=== PATIENT | male | born 1950 | race Caucasian/White ===

== ENCOUNTER 2023-02-01 10:21 | Emergency (ER) | payer MEDICARE, OTHER ==
[~2023-02-01] VITALS: Ht 172.7 cm; Wt 69.0 kg
[~2023-02-01 10:21] MED LIST: HYDR-3454 PO; SERT100T8 PO
[2023-02-01] MEDS ORDERED: NS IV 1000 ML 1,000 ML IV STA (10:34)
[2023-02-01 10:37] LABS: BASOPHILS % (AUTO) 1 % (0-10); EOSINOPHILS # (AUTO) 0.1 10^3/uL (0.0-0.3); EOSINOPHILS % (AUTO) 2 % (0-10); HEMATOCRIT 44 % (40-54); HEMOGLOBIN 15.1 g/dL (13.3-17.7); LYMPHOCYTES # (AUTO) 1.2 10^3/uL (1.0-4.0); LYMPHOCYTES % (AUTO) 29 % (12-44); MEAN CORPUSCULAR HEMOGLOBIN 33 pg (25-34); MEAN CORPUSCULAR HGB CONC 34 g/dL (32-36); MEAN CORPUSCULAR VOLUME 96 fL (80-99); MEAN PLATELET VOLUME 10.6 fL (9.0-12.2); MONOCYTES # (AUTO) 0.3 10^3/uL (0.0-1.0); MONOCYTES % (AUTO) 8 % (0-12); NEUTROPHILS # (AUTO) 2.4 10^3/uL (1.8-7.8); NEUTROPHILS % (AUTO) 60 % (42-75); PLATELET COUNT 156 10^3/uL (130-400); WHITE BLOOD COUNT 3.9 10^3/uL (4.3-11.0)
--- NOTE | 2023-02-01 10:40 | ED Cardiac General ---
History of Present Illness General Chief Complaint: Cardiac/General Problems Stated Complaint: LOW HR; DIZZINESS Source: patient History of Present Illness Date Seen by Provider: Feb 01, 2023 Time Seen by Provider: 10:23 Initial Comments 72-year-old male presenting with complaints of feeling dizzy since Friday. He states that he got overheated working in his garage on Friday and started having dizziness then. He had also gotten dehydrated the week before. He has not really increased his fluid intake. He noticed that his urine has been darker than normal. Today he had gone to the walk-in care [facility] and they told him that his blood pressure was high and his heart rate was in the 40s. He denies having a history of high blood pressure or having his heart rate really slow. He states that the dizziness is little worse when he changes positions but is there all the time. He denies having symptoms like this previously. He denied having fever, chills, nausea, vomiting, diarrhea, pain with urination, chest pain, shortness of breath. He has a past medical history of psoriasis and BPH. Timing/Duration: 4-5 days Severity: moderate Activities at Onset: other (working in the heat) Modifying Factors: worse with exercise NTG SL INFORMATION DIRECTOR: No ASA po INFORMATION DIRECTOR: No Associated Systoms: No Chest Pain, No Cough, No Diaphoresis, No Fever/Chills, No Headaches, No Loss of Appetite, No Malaise, No Nausea/Vomiting; Rash (chronic psoriasis); No Seizure, No Shortness of Air, No Syncope, No Weakness Allergies and Home Medications Allergies Coded Allergies: No Known Drug Allergies (Unverified , 01/30/15) Patient Home Medication List Home Medication List Reviewed: Yes Hydrocodone Bit/Acetaminophen (Vicodin 5-300 Mg Tablet) 1 Each Tablet, 1-2 EACH PO Q4H PRN for PAIN Prescribed by: GIOVANNI CHANG on 02/01/15 1034 Sertraline Hcl (Sertraline Hcl) 100 Mg Tablet, 100 MG PO DAILY, (Reported) Entered as Reported by: LIV MCGRAW on 01/30/15 0847 Review of Systems Review of Systems Constitutional: No chills, No diaphoresis; dizziness; No fever, No malaise EENTM: No Blurred Vision, No Double Vision, No Nose Congestion, No Throat Pain Respiratory: Denies Cough, Denies Shortness of Air Cardiovascular: Denies Chest Pain Gastrointestinal: Denies Diarrhea, Denies Nausea, Denies Vomiting Genitourinary: See HPI Musculoskeletal: no symptoms reported Skin: see HPI Psychiatric/Neurological: Denies Headache, Denies Numbness, Denies Paresthesia Endocrine: No Symptoms Reported Hematologic/Lymphatic: No Symptoms Reported Past Joaluum-Auhfzm-Gcltgj Hx Patient Social History Tobacco Use?: No Use of E-Cig and/or Vaping dev: No Substance use?: No Past Medical History Surgery/Hospitalization HX: Psoriasis, BPH Chronic Bronchitis Reproductive Disorders: No HIV/AIDS: No Prostate Problems Loss of Vision: Bilateral Hearing Impairment: Hard of Hearing Depression Psoriasis Adverse Reaction/Blood Tranf: No Physical Exam Vital Signs Vital Signs - First Documented 02/01/23 02/01/23 10:24 10:35 Temp 36.7 Pulse 55 Resp 16 B/P (MAP) 206/76 (119) Pulse Ox 98 O2 Delivery Room Air Capillary Refill : Height, Weight, BMI Height: 5'8.00" Weight: 154lbs. oz. 69.094814wf; BMI Method: General Appearance: No Apparent Distress, WD/WN HEENT: PERRL/EOMI, Pharynx Normal Neck: Full Range of Motion, Normal Inspection, Non Tender, Supple Respiratory: Chest Non Tender, Lungs Clear, Normal Breath Sounds, No Accessory Muscle Use, No Respiratory Distress Cardiovascular: Normal Peripheral Pulses, Bradycardia Gastrointestinal: Normal Bowel Sounds, No Pulsatile Mass, Non Tender, Soft Rectal: Deferred Extremity: Normal Capillary Refill, Normal Range of Motion, Non Tender, No Pedal Edema Neurologic/Psychiatric: Alert, Oriented x3, No Motor/Sensory Deficits, Normal 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, 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 as Tested Skin: Warm/Dry, Rash (diffuse various patches of psoriasis) Progress/Results/Core Measures Results/Orders Lab Results Laboratory Tests Test 02/01/23 10:30 02/01/23 10:39 Range/Units White Blood Count 3.9 L 4.3-11.0 10^3/uL Red Blood Count 4.62 4.30-5.52 10^6/uL Hemoglobin 15.1 13.3-17.7 g/dL Hematocrit 44 40-54 % Mean Corpuscular Volume 96 80-99 fL Mean Corpuscular Hemoglobin 33 25-34 pg Mean Corpuscular Hemoglobin Concent 34 32-36 g/dL Red Cell Distribution Width 13.1 10.0-14.5 % Platelet Count 156 130-400 10^3/uL Mean Platelet Volume 10.6 9.0-12.2 fL Immature Granulocyte % (Auto) 0 % Neutrophils (%) (Auto) 60 42-75 % Lymphocytes (%) (Auto) 29 12-44 % Monocytes (%) (Auto) 8 0-12 % Eosinophils (%) (Auto) 2 0-10 % Basophils (%) (Auto) 1 0-10 % Neutrophils # (Auto) 2.4 1.8-7.8 10^3/uL Lymphocytes # (Auto) 1.2 1.0-4.0 10^3/uL Monocytes # (Auto) 0.3 0.0-1.0 10^3/uL Eosinophils # (Auto) 0.1 0.0-0.3 10^3/uL Basophils # (Auto) 0.0 0.0-0.1 10^3/uL Immature Granulocyte # (Auto) 0.0 0.0-0.1 10^3/uL Prothrombin Time 12.4 12.2-14.7 SEC INR Comment 0.9 0.8-1.4 Activated Partial Thromboplast Time 27 24-35 SEC Sodium Level 136 135-145 MMOL/L Potassium Level 4.6 3.6-5.0 MMOL/L Chloride Level 101 98-107 MMOL/L Carbon Dioxide Level 24 21-32 MMOL/L Anion Gap 11 5-14 MMOL/L Blood Urea Nitrogen 17 7-18 MG/DL Creatinine 0.91 0.60-1.30 MG/DL Estimat Glomerular Filtration Rate 90 BUN/Creatinine Ratio 19 Glucose Level 98 70-105 MG/DL Calcium Level 9.6 8.5-10.1 MG/DL Corrected Calcium 8.5-10.1 MG/DL Magnesium Level 2.2 1.6-2.4 MG/DL Total Bilirubin 0.5 0.1-1.0 MG/DL Aspartate Amino Transf (AST/SGOT) 21 5-34 U/L Alanine Aminotransferase (ALT/SGPT) 17 0-55 U/L Alkaline Phosphatase 78 40-136 U/L Troponin I < 0.30 <0.30 NG/ML Pro-B-Type Natriuretic Peptide 39.7 <125.0 PG/ML Total Protein 6.9 6.4-8.2 GM/DL Albumin 4.6 H 3.2-4.5 GM/DL Lipase 21 8-78 U/L Urine Color YELLOW Urine Clarity CLEAR Urine pH 6.0 5-9 Urine Specific [place] <=1.005 1.016-1.022 Urine Protein NEGATIVE NEGATIVE Urine Glucose (UA) NEGATIVE NEGATIVE Urine Ketones NEGATIVE NEGATIVE Urine Nitrite NEGATIVE NEGATIVE Urine Bilirubin NEGATIVE NEGATIVE Urine Urobilinogen 0.2 < = 1.0 MG/DL Urine Leukocyte Esterase NEGATIVE NEGATIVE Urine RBC (Auto) NEGATIVE NEGATIVE Urine RBC 0-2 /HPF Urine WBC 0-2 /HPF Urine Crystals NONE /LPF Urine Bacteria NEGATIVE /HPF Urine Casts NONE /LPF Urine Mucus NEGATIVE /LPF Urine Culture Indicated NO My Orders Orders - JOHN JIMENEZ MD Cbc With Automated Diff (02/01/23 10:32) Magnesium (02/01/23 10:32) Chest 1 View Ap/Pa Only (02/01/23 10:32) Ekg Tracing (02/01/23 10:32) Comprehensive Metabolic Panel (02/01/23 10:32) Protime With Inr (02/01/23 10:32) Partial Thromboplastin Time (02/01/23 10:32) O2 (02/01/23 10:32) Monitor-Rhythm Ecg Trace Only (02/01/23 10:32) Ed Iv/Invasive Line Start (02/01/23 10:32) Lipase (02/01/23 10:32) Troponin I Fs (02/01/23 10:32) Probnp Fs (02/01/23 10:32) Ua Culture If Indicated (02/01/23 10:32) Ct Head Wo (02/01/23 10:32) Orthostatic Vital Signs (Adult (02/01/23 10:32) Ns Iv 1000 Ml (Sodium Chloride 0.9%) (02/01/23 10:34) Vital Signs/I&O 02/01/23 02/01/23 02/01/23 02/01/23 10:24 10:35 10:45 11:46 Temp 36.7 Pulse 55 51 52 54 56 Resp 16 12 B/P (MAP) 206/76 (119) 194/76 (115) 189/81 188/77 (114) 172/78 (109) Pulse Ox 98 98 O2 Delivery Room Air Room Air Room Air Progress Progress Note #1: Progress Note Possible diagnosis of dehydration, sick sinus syndrome, myocardial infarction, acute coronary syndrome, hyponatremia, electrolyte imbalance. Placed on cardiac quality assurance monitor chassis and initially heart rate is 50 to 55 bpm. Obtain electrocardiogram to further delineate the heart rate and rhythm. Initial blood pressure was 206/86. He is having oxygen saturation of 98% on room air. Obtain peripheral IV access and send labs for complete blood count, comprehensive metabolic profile, magnesium, troponin, proBNP, coagulation factors, urinalysis, 1 view chest x-ray to look for pathology in his chest, CT head without IV contrast to look for pathology to be causing dizziness. Administer normal saline 1 L IV fluid bolus for hydration. Obtain orthostatic vital signs to look at what his blood pressure and heart rate does with changing positions. Progress Note #2: Progress Note His complete blood count was not showing elevationof WBC for infection and not anemic with Hgb 15.1. Comprehensive metabolic panel did not show any acute significant electrolyte abnormality to account for his dizziness and bradyca rdia. His troponin and proBNP were both negative. His urinalysis was dilute with specific gravity less than 1.005. Patient states he has been drinking more fluids since last night. His CT scan of the head did not show any acute intracranial process, mass, bleeding, stroke. His 1 view chest x-ray did not show any acute infiltrate or effusion. When I reviewed results with the patient his IV fluids have finished infusing and he reported that he was feeling less dizzy. His orthostatic vital signs did not have any significant change with change in position. Discussed with him that if he started having worsening symptoms such as passing out or nearly passing out, chest pain, headache, vision change she needs to be seen right away otherwise he needs to follow-up with cardiology for additional testing to evaluate his potential source of bradycardia. This may still be back to hydrati on and if he continues to drink plenty of fluids and electrolyte drinks that may continue to improve. Given the phone number for Dr. Sullivan with cardiology in [place] as well as advised that he can check with the [facility] where he usually gets care. Again stressed importance of follow-up and return precautions. Initial ECG Impression Date: Feb 01, 2023 Initial ECG Impression Time: 10:27 Initial ECG Rate: 50 Initial ECG Rhythm: S.Paul Initial ECG Comparisson: No Previous ECG Available Comment On my initial interpretation and reviewed with the electrocardiogram shows sinus bradycardia with a heart rate of 50 bpm. There is no acute ST elevation. He does have some findings for LVH. NC interval 165 ms. QT interval 408 ms with a QTc interval 382 ms. He has no prior tracing available for comparison. Diagnostic Imaging Diagonstic Imaging: Xray Plain Films/CT/US/NM/MRI: chest Comments [facility] [place], [place] NAME: MARISELA LAZAR [facility] REC#: [id number] PT STATUS: REG ER : 1950 PHYSICIAN: JOHN JIMENEZ MD ADMIT DATE: 02/01/23/ER FS Draft Date of Exam:02/01/23 CHEST 1 VIEW AP/PA ONLY Indication: Dizziness and slow heart rate. Time of Exam: 10:40 AM No prior studies are available for comparison. Findings: The heart size is normal. The pulmonary vascularity is unremarkable. The lungs are clear. No infiltrate, effusion or pneumothorax is detected. Impression: No acute cardiopulmonary process is detected. Dictated on workstation # [id number] Dict: 02/01/23 1104 Trans: 02/01/23 1109 [facility] [id number] Interpreted by: BALJEET SMITH MD Electronically signed by: Reviewed: Reviewed by Me Diagonstic Imaging: CT Plain Films/CT/US/NM/MRI: head Comments [facility], [place] NAME: MARISELA LAZAR [facility] REC#: [id number] PT STATUS: REG ER : 1950 PHYSICIAN: JOHN JIMENEZ MD ADMIT DATE: 02/01/23/ER FS Draft Date of Exam:02/01/23 CT HEAD WO PROCEDURE: CT head without contrast. TECHNIQUE: Multiple contiguous axial images were obtained through the brain without the use of intravenous contrast. Auto Exposure Controls were utilized during the CT exam to meet ALARA standards for radiation dose reduction. INDICATION: Dizziness for 3 days and low heart rate. No prior studies are available for comparison. Ventricles and sulci are within normal limits. No sulcal effacement or midline shift is identified. No acute intra-axial or extra-axial hemorrhage is identified. Cisterns are patent. The visualized paranasal sinuses are clear. IMPRESSION: No acute intracranial process is detected. Dictated on workstation # [id number] Dict: 02/01/23 1103 Trans: 02/01/23 1109 [facility] [id number] Interpreted by: BALJEET SMITH MD Electronically signed by: Reviewed: Reviewed by Me Departure Impression Primary Impression: Dizziness Additional Impressions: Bradycardia Hypertension Qualified Codes: I10 - Essential (primary) hypertension Disposition: HOME, SELF-CARE Condition: Improved Departure-Patient Inst. Decision time for Depature: 11:39 Referrals: ASHA HURST (PCP) Primary Care Physician JONI CORDOVA MD FACP FAC CCDS Patient Instructions: Dehydration, Adult ED, Dizziness, Adult ED, High Blood Pressure ED Add. Discharge Instructions: Try to stay well-hydrated and drink plenty of water and electrolyte drinks in addition to the coffee. [facility] or with Dr. Cordova in [place] for continued dizziness and high blood pressure. If you continue to have symptoms cardiology would need to do some additional testing and try to figure out the reason for your slow heart rate. If you are having fainting episodes or passing out or develop chest pain, headache, new worsening symptoms then you should be seen sooner or return to the emergency department for possible admission and further work-up. All discharge instructions reviewed with patient and/or family. Voiced understanding. JOHN JIMENEZ MD Feb 01, 2023 10:40
[2023-02-01 10:42] LABS: BILIRUBIN,URINE NEGATIVE (NEGATIVE); CLARITY,URINE CLEAR; COLOR,URINE YELLOW; GLUCOSE, URINE (UA) NEGATIVE (NEGATIVE); KETONES,URINE NEGATIVE (NEGATIVE); LEUKOCYTE ESTERASE ,URINE NEGATIVE (NEGATIVE); NITRITE,URINE NEGATIVE (NEGATIVE); PROTEIN,URINE NEGATIVE (NEGATIVE)
[2023-02-01 10:44] LABS: BACTERIA,URINE NEGATIVE /HPF; RBC,URINE 0-2 /HPF; WBC,URINE 0-2 /HPF
[2023-02-01 10:45] VITALS: BP_SYST 172; BP_SYST 188; BP_SYST 194; BP_DIAS 76; BP_DIAS 77; BP_DIAS 78
[2023-02-01 10:47] LABS: PROTHROMBIN TIME PATIENT 12.4 SEC (12.2-14.7)
[2023-02-01 10:48] LABS: INR 0.9 (0.8-1.4)
[2023-02-01 11:02] LABS: ALANINE AMINOTRANSFERASE 17 U/L (0-55); ALKALINE PHOSPHATASE 78 U/L (40-136); BILIRUBIN,TOTAL 0.5 MG/DL (0.1-1.0); BUN/CREATININE RATIO 19; CALCIUM 9.6 MG/DL (8.5-10.1); CARBON DIOXIDE 24 MMOL/L (21-32); CHLORIDE 101 MMOL/L (98-107); CREATININE SERUM 0.91 MG/DL (0.60-1.30); GFR ESTIMATED 90; GLUCOSE 98 MG/DL (70-105); MAGNESIUM 2.2 MG/DL (1.6-2.4); POTASSIUM 4.6 MMOL/L (3.6-5.0); SODIUM 136 MMOL/L (135-145)
[2023-02-01 11:03] LABS: ALBUMIN 4.6 GM/DL (3.2-4.5); LIPASE 21 U/L (8-78); TOTAL PROTEIN 6.9 GM/DL (6.4-8.2)
--- NOTE | 2023-02-01 11:09 | Diagnostic Imaging Report ---
PROCEDURE: CT head without contrast. TECHNIQUE: Multiple contiguous axial images were obtained through the brain without the use of intravenous contrast. Auto Exposure Controls were utilized during the CT exam to meet ALARA standards for radiation dose reduction. INDICATION: Dizziness for 3 days and low heart rate. No prior studies are available for comparison. Ventricles and sulci are within normal limits. No sulcal effacement or midline shift is identified. No acute intra-axial or extra-axial hemorrhage is identified. Cisterns are patent. The visualized paranasal sinuses are clear. IMPRESSION: No acute intracranial process is detected. Dictated by: Dictated on workstation # [id number]
--- NOTE | 2023-02-01 11:10 | Diagnostic Imaging Report ---
Indication: Dizziness and slow heart rate. Time of Exam: 10:40 AM No prior studies are available for comparison. Findings: The heart size is normal. The pulmonary vascularity is unremarkable. The lungs are clear. No infiltrate, effusion or pneumothorax is detected. Impression: No acute cardiopulmonary process is detected. Dictated by: Dictated on workstation # [id number]
[2023-02-01 11:46] VITALS: BP 189/81
== END 2023-02-01 11:46 | disposition home or self-care (01) ==
LOC: EDUNIT# 10:21 → ER FS 10:22
DX: I10 Essential (primary) hypertension (principal); R00.1 Bradycardia, unspecified
CPT/HCPCS: 36415; 70450; 71045; 80053; 81000; 83690; 83735; 83880; 84484; 85025; 85610; 85730; 93005; 93041